=== PATIENT | male | born 1995 | race Two or more races ===

== ENCOUNTER 2022-09-25 11:51 | Emergency (ER) | payer OTHER ==
[2022-09-25] MEDS ORDERED: ACETAMINOPHEN 500 MG TABLET (FP) PO ONE (12:10)
[2022-09-25] MEDS ORDERED: IBUPROFEN 600 MG TABLET (FP) PO ONE ×2 (12:10→12:17)
[2022-09-25 12:16] VITALS: BP 115/77; PULSE 77; RESP 20; TEMP 98.2; BMI 25.1
[2022-09-25] MEDS ORDERED: ACETAMINOPHEN 500 MG TABLET (FP) ONE (12:18)
[2022-09-25] MEDS ORDERED: diazePAM 5 MG TABLET PO ONE (12:48)
[2022-09-25] MEDS ORDERED: diazePAM 2 MG TABLET PO ONE (13:28)
[2022-09-25] MEDS ORDERED: diazePAM 2 MG TABLET ONE (13:36)
== END 2022-09-25 17:34 | disposition left against medical advice (07) ==
LOC: JERFT 11:51 → JER 11:51 → JERFT 17:34
DX: M54.50 Low back pain, unspecified (principal)
CPT/HCPCS: 99283-25